=== PATIENT | female | born 1985 | race Caucasian/White ===

== ENCOUNTER 2017-05-16 14:31 | Emergency (ER) | payer OTHER ==
[~2017-05-16] VITALS: Ht 170.2 cm; Wt 102.1 kg
--- NOTE | 2017-05-16 15:28 | ED GI/GU/ABDOMINAL COMPLAINT ---
History of Present Illness General Chief Complaint: Abdominal Pain/Flank Pain Stated Complaint: ABD PAIN DX GALLSTONES Source: patient, family Exam Limitations: no limitations Vital Signs & Intake/Output Vital Signs & Intake/Output Vital Signs Date Time Temp Pulse Resp B/P B/P Pulse O2 O2 Flow FiO2 Mean Ox Delivery Rate 05/16 1647 97.6 80 18 122/60 98 Room Air 05/16 1459 98.4 84 18 118/87 99 Room Air Allergies Coded Allergies: No Known Drug Allergies (Intermediate, NONE 05/16/17) Triage Note: C/O R SIDED ABDOMINAL PAIN X 8 WEEKS WITH NAUSEA.(INTERMITTANT). DXD WITH GALL STONES 2 WEEKS AGO (HAD OUT PT US DONE). STATES SHE RECENTLY HAD A BABY 01/27, AND LOST 40 LBS. Triage Nurses Notes Reviewed? yes ? N Is pt currently ? No Onset: Abrupt Quality/Severity: sharpness, severe, stabbing, throbbing Severity Numbers: 10 Location: right upper quadrant Radiation: no radiation HPI: Patient is a 31-year-old female with a past medical history of hypothyroidism who had a approximate 4 months ago who presents emergency room with concerns of an 8 week history of biliary colic where patient had an ultrasound APR 22 by outpatient primary care doctor showing concerns of gallstones and since patient has had intermittent right upper quadrant pain usually onset with eating and drinking. Patient states that today this morning after eating breakfast she had acute onset of sharp stabbing severe right upper quadrant pain and now nausea and vomiting have occurred today. Last bowel movement was no blood no melena. Denies any NSAID use or alcohol use. Patient has tactile fevers and chills. (Ángel Vang) Reconcile Medications Hydrocodone/Acetaminophen (Vicodin 5-300 MG Tablet) 5 MG-300 MG TABLET 1 TAB PO BID PRN PAIN Ondansetron HCl (Zofran) 4 MG TABLET 1 TAB PO Q6-8P PRN NAUSEA (Herbie Hsieh MD) Past History Travel History Traveled to [place] past 21 day No Medical History Any Pertinent Medical History? see below for history Endocrine: hypothyroidism Surgical History Surgical History: Psychosocial History What is your primary language Icelandic Tobacco Use: Never used ETOH Use: denies use Family History Hx Contributory? No (Ángel Vang) Review of Systems Review of Systems Constitutional: Reports: see HPI, chills. EENTM: Reports: no symptoms. Respiratory: Reports: no symptoms. Cardiovascular: Reports: no symptoms. GI: Reports: see HPI, abdominal pain. Genitourinary: Reports: no symptoms. Musculoskeletal: Reports: no symptoms. Skin: Reports: no symptoms. Neurological/Psychological: Reports: no symptoms. Hematologic/Endocrine: Reports: no symptoms. Immunologic/Allergic: Reports: no symptoms. All Other Systems: Reviewed and Negative (Ángel Vang) Physical Exam Physical Exam General Appearance: mild distress, obese Head: atraumatic Eyes: Bilateral: normal appearance. Ears, Nose, Throat, Mouth: hearing grossly normal Neck: normal inspection Respiratory: normal breath sounds Cardiovascular: regular rate/rhythm Gastrointestinal: normal bowel sounds, soft, RUQ AND EPIGASTRIC PAIN NO RLQ PAIN NO REBOUND Back: normal inspection Extremities: normal range of motion Skin: intact, normal color Core Measures ACS in differential dx? No Sepsis Present: No Sepsis Focused Exam Completed? No (Ángel Vang) Progress Differential Diagnosis: AAA, AMI, appendicitis, biliary colic, bowel obstruction , colon cancer, cholecystitis, diverticulitis, ectopic , endometritis, esophageal varices, gastritis, hepatitis, hernia, hemorrhoids, ischemic bowel, inflamm bowel dis, intrauterine , kidney stone, Barbara-Padma tear, ovarian cyst, ovarian torsion, pancreatitis, PID/cervicitis, peptic ulcer, PUD/ GERD, perforated viscous, SBO, threatened AB, UTI/pyelo Plan of Care: Orders Procedure Date/time Status HUMAN BETA HCG SCREEN 05/16 1539 Complete DIRECT BILIRUBIN 05/16 1539 Complete AMYLASE 05/16 1539 Complete PARTIAL THROMBOPLASTIN TIME 05/16 1537 Complete PROTHROMBIN TIME 05/16 1537 Complete URINE 05/16 1436 Active URINALYSIS 05/16 1436 Active LIPASE 05/16 1436 Complete COMPREHENSIVE METABOLIC PANEL 05/16 1436 Complete CBC WITHOUT DIFFERENTIAL 05/16 1436 Complete Laboratory Tests 05/16/17 1539: Anion Gap 13, Estimated GFR > 60, BUN/Creatinine Ratio 16.3, Glucose 93, Calcium 9.8, Total Bilirubin 1.1, Direct Bilirubin 0.8 H, AST 127 H, ALT 105 H, Alkaline Phosphatase 101, Total Protein 7.5, Albumin 4.2, Globulin 3.3, Albumin/ Globulin Ratio 1.3, Amylase 41, Lipase 62, Total Beta HCG NEGATIVE, PT 11.1, INR 1.02, APTT 31, CBC w Diff NO MAN DIFF REQ, RBC 5.14, MCV 88.8, MCH 29.0, MCHC 32.6 L, RDW 14.4, MPV 12.6 H, Gran % 79.2 H, Lymphocytes % 15.0 L, Monocytes % 4.7, Eosinophils % 0.6, Basophils % 0.5, Absolute Granulocytes 8.9 H, Absolute Lymphocytes 1.7, Absolute Monocytes 0.5, Absolute Eosinophils 0.1, Absolute Basophils 0.1 05/16/171536: Direct Bilirubin Cancelled, Amylase Cancelled, Total Beta HCG Cancelled Patient on initial presentation has concerns of biliary colic no right lower quadrant pain concerned at this time appendicitis patient afebrile nontoxic appearing 1634- patient was reevaluated and has significant improvement of pain and nausea. I reviewed the blood work with patient After ultrasound was obtained no concerns at this time of acute cholecystitis, I did review patient's blood work elevation of LFT and bilirubin however this most likely is due to the biliary colic, patient upon discharge looks well no distress was able tolerate by mouth and was strongly advised to follow-up with discharge instructions and plan and she will comply Discussed disposition and plan with dr hsieh who agrees Diagnostic Imaging: Viewed by Me: Ultrasound. Radiology Impression: SEE COMMENTS Initial ED EKG: none Comments: PATIENT: KARLI FLORES PRESENT AGE: 31 PATIENT ACCOUNT NO: [id number] : 86 LOCATION: [facility] ORDERING PHYSICIAN: Ángel DIALLO SERVICE DATE: 05/16/17 EXAM TYPE: US - US-LIMITED ABDOMEN EXAMINATION: US ABDOMEN LIMITED CLINICAL INFORMATION: Right upper quadrant pain. COMPARISON: None TECHNIQUE: Real-time imaging of the right upper quadrant abdominal viscera. FINDINGS: PANCREAS: Normal. LIVER: Normal. The liver demonstrates normal size, contour and echogenicity. No focal lesion or intrahepatic biliary duct dilatation. GALLBLADDER: There are numerous gallstones. The gallbladder is physiologically distended, there is no wall thickening or pericholecystic fluid. COMMON BILE DUCT: Normal in caliber measuring 0.30 cm in diameter. RIGHT KIDNEY: Normal. No hydronephrosis. No renal calculi or focal parenchymal lesions. The kidney measures 11.4 cm in maximum dimension. FREE FLUID: None. IMPRESSION: There are multiple gallstones, cholelithiasis, no ultrasound evidence of cholecystitis. Exam otherwise normal. DICTATED BY: Shi Baires MD DATE/TIME DICTATED:05/16/171635 FLAME HARDENER:ELVIRA DATE/TIME TRANSCRIBED:05/16/171635 (Ángel Vang) Departure Departure Disposition: HOME OR SELF CARE Condition: Stable Clinical Impression Primary Impression: Biliary colic Secondary Impressions: Gallstones Referrals: Tana JAVIER,Ag Hurtado (PCP/Family) Juan JAVIER,Beck Garay Additional Instructions: As discussed please avoid fatty foods as this may worsen your symptoms, if YOU develop fevers or new concerning symptom return to emergency room, on Thursday please follow up and establish surgeon Dr. Martinez for further evaluation treatment. Begin [id number] ibuprofen for pain and inflammation begin the prescription of Vicodin for pain. Begin the prescription of Zofran for nausea Prescriptions waiting at [facility] Departure Forms: Customer Survey General Discharge Information Prescriptions: Current Visit Scripts Ondansetron HCl (Zofran) 1 TAB PO Q6-8P PRN NAUSEA #10 TAB Hydrocodone/Acetaminophen (Vicodin 5-300 MG Tablet) 1 TAB PO BID PRN PAIN #12 TAB (Ángel Vang) PA/LICENSED MASTER SOCIAL WORKER Co-Sign Statement Statement: ED Attending supervision documentation- I saw and evaluated the patient. I have also reviewed all the pertinent lab results and diagnostic results. I agree with the findings and the plan of care as documented in the PA's/LICENSED MASTER SOCIAL WORKER's documentation. x I have reviewed the ED Record and agree with the PA's/LICENSED MASTER SOCIAL WORKER's documentation. [] Additions or exceptions (if any) to the PAs/LICENSED MASTER SOCIAL WORKER's note and plan are summarized below: [] (Мария JAVIER,Herbie)
[2017-05-16 15:55] LABS: ABSOLUTE BASOPHIL COUNT 0.1 /CUMM (0.0-0.2); ABSOLUTE EOSINOPHIL COUNT 0.1 /CUMM (0.0-0.7); ABSOLUTE GRANULOCYTE CT 8.9 /CUMM (1.4-6.5); ABSOLUTE LYMPH COUNT 1.7 /CUMM (1.2-3.4); ABSOLUTE MONOCYTE COUNT 0.5 /CUMM (0.10-0.60); BASOPHIL % 0.5 % (0.0-2.0); EOSINOPHIL % 0.6 % (0-5); GRANULOCYTE % 79.2 % (42.2-75.2); HEMATOCRIT 45.6 % (37-47); MEAN CORPUSCULAR HGB CONC 32.6 G/DL (33.0-37.0); MEAN CORPUSCULAR VOLUME 88.8 FL (81.0-99.0); MEAN PLATELET VOLUME 12.6 FL (7.4-10.4); PLATELET COUNT 205 /CUMM (130-400); RBC DISTRIBUTION WIDTH 14.4 % (11.5-14.5); RED BLOOD CELL CT 5.14 /CUMM (4.20-5.40); WHITE BLOOD CELL COUNT 11.2 /CUMM (4.8-10.8)
[2017-05-16 16:13] LABS: PT 11.1 SEC (9.4-12.5); PTT 31 SEC (25-37)
--- NOTE | 2017-05-16 16:42 | ULTRASOUND REPORT ---
EXAMINATION: US ABDOMEN LIMITED CLINICAL INFORMATION: Right upper quadrant pain. COMPARISON: None TECHNIQUE: Real-time imaging of the right upper quadrant abdominal viscera. FINDINGS: PANCREAS: Normal. LIVER: Normal. The liver demonstrates normal size, contour and echogenicity. No focal lesion or intrahepatic biliary duct dilatation. GALLBLADDER: There are numerous gallstones. The gallbladder is physiologically distended, there is no wall thickening or pericholecystic fluid. COMMON BILE DUCT: Normal in caliber measuring 0.30 cm in diameter. RIGHT KIDNEY: Normal. No hydronephrosis. No renal calculi or focal parenchymal lesions. The kidney measures 11.4 cm in maximum dimension. FREE FLUID: None. IMPRESSION: There are multiple gallstones, cholelithiasis, no ultrasound evidence of cholecystitis. Exam otherwise normal.
[2017-05-16 16:47] VITALS: BP 122/60
[2017-05-16] MEDS ORDERED: VICODIN 5-3001 EACH PO (16:50)
[2017-05-16] MEDS ORDERED: ZOFRAN4 M2 PO (16:50)
== END 2017-05-16 17:03 ==
LOC: ERH 14:31
PROVIDERS: Physician Assistant; Physician Assistant Medical
DX: K80.70 Calculus of gallbladder and bile duct without cholecystitis without obstruction (principal)
CPT/HCPCS: 81025; 96374; 96375; J2405

== ENCOUNTER → 2017-05-27 | Day surgery (SDC) | payer OTHER ==
[~2017-05-27] VITALS: Ht 170.2 cm; Wt 105.2 kg
[~2017-05-27] MED LIST: VICODIN 5-3001 EACH PO; ZOFRAN4 M2 PO
--- NOTE | 2017-05-27 11:54 | Operative Report ---
Operative/Inv Procedure Report Surgery Date: 05/27/17 Name of Procedure: Laparoscopic cholecystectomy Pre-Operative Diagnosis: Biliary colic Post-Operative Diagnosis: Same Estimated Blood Loss: scant Surgeon/Tire Service Technician: Juan JAVIER,Beck Garay/Amena DIALLO Anesthesia: general endotracheal tube Drains: None Specimens: Gallbladder Operative Indication: 31-year-old woman in the early . Presents with episodic right upper quadrant abdominal pain and gallstones. Operative/Procedure Note Note: After informed consent patient is brought to the operating room and laid supine. General anesthesia was obtained and her abdomen was prepped and draped. The skin above the umbilicus infiltrated with local anesthesia and a curvilinear incision made sharply. We came down through the subcutaneous tissues bluntly and grasped the fascia with Iola's. A fasciotomy was created sharply and stay sutures placed. The peritoneum was entered sharply and a blunt Chun port was placed. Pneumoperitoneum was achieved. 3, 5 mm ports were placed in the epigastrium and right upper quadrant after local anesthesia was instilled and under direct vision the camera. She's placed in reverse Trendelenburg and rotated towards the left. The gallbladder is identified. It was grasped at the dome and retracted towards the head. Infundibulum was then grasped. Adhesions to the undersurface were taken down with blunt and cautery dissection. We dissected both sides the triangle Calot peritoneal tissue with cautery. The artery was medial and its normal anatomic position. It was cauterized medially to allow it to be mobilized away from the duct. [place] was cleared of areolar tissue with cautery. The arteries and duct were doubly ligated with clips. Gallbladder is removed from the fossa electrocautery. There was a second branch of the artery midway up on the right side. It was clipped ligated without further incident. The gallbladder was placed in Endo Catch bag and cinched up. Right upper quadrant was and suction irrigated normal saline. Hemostasis achieved with cautery. The ports were then removed and the gallbladder delivered and passed off the field. The fascia was closed with 0 Vicryl suture. Skin incisions closed with 4-0 Vicryl. Steri-Strips and sterile dressing applied. Sponge and needle counts are correct. CC: Tana JAVIER,Ag Hurtado
== END ==
LOC: STS 07:00
DX: K80.10 Calculus of gallbladder with chronic cholecystitis without obstruction (principal); E03.9 Hypothyroidism, unspecified
CPT/HCPCS: 81025; C9399; J0131; J0690; J1100; J1885; J2250; J2405